=== PATIENT | female | born 1965 | race Caucasian/White ===

== ENCOUNTER 2017-02-17 09:25 | Emergency (ER) | payer MEDICAID ==
[~2017-02-17] VITALS: Ht 154.9 cm; Wt 64.0 kg
[2017-02-17 09:31] VITALS: Ht 154.9 cm; Wt 64.0 kg
[2017-02-17] MEDS ORDERED: BEN25 PO (10:46)
[2017-02-17] MEDS ORDERED: HC30CR25 TOP (10:46)
[2017-02-17] MEDS ORDERED: MED4DP PO (10:46)
[2017-02-17] MEDS ORDERED: IBUP-1542 PO (10:48)
--- NOTE | 2017-02-17 14:03 | ERD ---
ER Documentation Chief Complaint Chief Complaint RASHES AND ITCHINESS ALL OVER THE BODY X 3 DAYS HPI Patient is a 51-year-old female presenting to the emergency department with complaints of full body rash associated with pruritus for the past 4 days. She states she used a new [id number] cough syrup which may be causing her rash. Symptoms are intermittent but worsening. She denies fevers, chills, difficulty breathing, or other symptoms at this time. ROS All systems reviewed and are negative except as per history of present illness. Medications Home Meds Active Scripts Ibuprofen* (Motrin*) 600 Mg Tab, 600 MG PO Q6, #20 TAB Prov:SHIVAM FULLER PA-C 02/17/17 Hydrocortisone* Topical (Hydrocortisone* Topical) 2.5%-28.3 Gm Cream..g., 1 APPLIC TOP BID, #1 TUB Prov:SHIVAM FULLER PA-C 02/17/17 Methylprednisolone* (Medrol* DOSE PACK) 4 Mg/Dose-Pack Tab.ds.pk, 4 MG PO . DIRECTED, #1 PACKET Prov:SHIVAM FULLER PA-C 02/17/17 Diphenhydramine Hcl* (Benadryl*) 25 Mg Cap, 25 MG PO Q6, #20 CAP Prov:SHIVAM FULLER PA-C 02/17/17 PMhx/Soc Medical and Surgical Hx: pt denies Medical Hx, pt denies Surgical Hx Hx Alcohol Use: No Hx Substance Use: No Hx Tobacco Use: No Smoking Status: Never smoker Physical Exam Vitals Vital Signs Date Time Temp Pulse Resp B/P Pulse Ox O2 Delivery O2 Flow Rate FiO2 02/17/17 09:31 98.5 83 19 125/58 97 Physical Exam Const: Nontoxic, well-appearing female in no acute distress. Head: Atraumatic Eyes: Normal Conjunctiva ENT: Normal External Ears, Nose and Mouth. The airway is clear. Neck: Full range of motion..~ No meningismus. Resp: Clear to auscultation bilaterally. No wheezing. No signs of respiratory distress. Cardio: Regular rate and rhythm, no murmurs Abd: Soft, non tender, non distended. Normal bowel sounds Skin: Macular papular rash noted to the anterior chest and bilateral upper extremities. Negative Nikolsky sign. No evidence of cellulitis. Ext: No cyanosis, or edema Neur: Awake and alert Psych: Normal Mood and Affect Procedures/MDM 51-year-old female presents to the emergency department with complaints of rash. History and physical examination consistent with urticaria. There were no signs of anaphylaxis, Finnegan-Frandy syndrome, or other emergent conditions. The patient is stable for outpatient management with prescriptions. Pt in agreement with discharge plan/diagnosis. Pt advised to return immediately with any new or worsening symptoms. Follow-up with primary care physician within the next 1-2 days. Disclaimer: Inadvertent spelling and grammatical errors are likely due to EHR/ dictation software use and do not reflect on the overall quality of patient care. Also, please note that the electronic time recorded on this note does not necessarily reflect the actual time of the patient encounter. Departure Diagnosis: Primary Impression: Urticaria Condition: Fair Patient Instructions: Self-Care for Skin Rashes, Hives [facility] Usted se anderson hecho un examen mdico de control que le indica que no est en khanh condicin que requiera tratamiento urgente en el Departamento de Emergencia. Un estudio ms profundo y el tratamiento de bullard condicin pueden esperar sin ningn riesgo hasta que usted sea atendida/o en el consultorio de bullard mdico o khanh cl mari. Es responsabilidad suya arreglar khanh harley para el seguimiento del nancy. MANEJO DE CONDICIONES NO URGENTES EN EL FUTURO 1) Si usted tiene un mdico de atencin primaria: Usted debera llamar a bullard mdico de atencin primaria antes de venir al departamento de emergencia. Despus de las horas de consultorio, bullard doctor o bullard asociado/a est disponible por telfono. El mdico o enfermero de emmanuelle en el servicio telefnico puede asesorarle por edvin medio para atender el problema, o nancy contrario se puede programar khanh harley. 2) Si usted no tiene un mdico de atencin primaria: Llame al mdico o clnica de referencia que aparece abajo rajinder las horas de consultorio para hacer khanh harley para que le vean. CLINICAS: [facility] [phone] [facility] [phone] [facility] [phone] [facility] [phone] [place] [id number] [phone] [facility]. [phone] [address] Additional Instructions: No mas mejor en 2-3 obando, regresar. Mas peor en 24 horas, regresear rapidamente. Ir a doctor primario en 1-2 obando. Usar instrucciones cuando shyanne medicamento. SHIVAM FULLER PA-C Feb 17, 2017 14:03
== END 2017-02-17 11:16 | disposition home or self-care (01) ==
LOC: FTE 09:25
DX: L50.9 Urticaria, unspecified (principal)
CPT/HCPCS: 99283